=== PATIENT | female | born 1975 | race Caucasian/White ===

== ENCOUNTER 2016-08-02 23:01 | Emergency (ER) | payer SELFPAY ==
[~2016-08-02 23:01] MED LIST: ALBUTEROL17 GM INH; BACTRIM 400-801 TA1; BACTRIM DS TABL1 TA1 PO; BACTRIM DS TABL1 TAB PO; BENTYL20 M1; CIPRO; COMBIVENT INH14.7 GM INH; DARVOCET-N 1001 TAB PO; FLAGYL; FLAGYL PO; FLEXERIL PO; IBUPROFEN800 MG PO; IMITREX PO; IMITREX25 MG PO; LITHIUM PO; LORTAB 5/500 TA1 TA1 PO; MACROBID 100 M100 MG PO; NAPROXEN PO; NO MEDICATIONS; PERCOCET 10/3251 TAB PO; PHENERGAN PO; PHENERGAN25 M1 PO; PRENATAL VITAMI1 TA3 PO; PRILOSEC PO; PROZAC PO; TRAZODONE PO; TYLENOL #3 PO; ULTRAM PO; VIBRAMYCIN100 M1; VICODIN 5/500 T1 TAB PO; VOLTAREN50 MG PO; ZOFRAN PO
== END 2016-08-02 23:40 | disposition home or self-care (01) ==
LOC: CED 23:01
DX: T40.1X1A Poisoning by heroin, accidental (unintentional), initial encounter (principal); Z90.49 Acquired absence of other specified parts of digestive tract; Z88.8 Allergy status to other drugs, medicaments and biological substances; F17.200 Nicotine dependence, unspecified, uncomplicated
CPT/HCPCS: 99282